=== PATIENT | male | born 1970 | race Caucasian/White ===

== ENCOUNTER 2017-03-08 01:42 | Emergency (ER) | payer MEDICAID ==
[~2017-03-08] VITALS: Ht 170.2 cm; Wt 98.0 kg
[~2017-03-08 01:42] MED LIST: FOLI-49 PO; FURO-109 PO; LACT20SO2 PO; MULTI PO; PANT40TA4 PO; RIFA550T4 PO; SPIR50TA PO; THIA100T56 PO
[2017-03-08 02:01] VITALS: Ht 170.2 cm; Wt 98.0 kg
[2017-03-08] MEDS ORDERED: ONDANSETRON (ODT) 4 MG TAB ODT STA (02:35)
[2017-03-08 02:57] LABS: ADD SCAN DIFF NO
[2017-03-08 03:00] LABS: ABNORMAL IP MESSAGE 1; HEMATOCRIT 32.5 % (42.0-52.0); HEMOGLOBIN 10.2 g/dl (14.0-18.0); MEAN CORPUSCULAR HEMOGLOBIN 27.6 pg (29.0-33.0); MEAN CORPUSCULAR HGB CONC 31.4 g/dl (32.0-37.0); MEAN CORPUSCULAR VOLUME 88.1 fl (82.0-101.0); PLATELET COUNT 60 10^3/UL (140-415); RED BLOOD COUNT 3.69 10^6/ul (4.70-6.10); RED CELL DISTRIBUTION WIDTH 18.6 % (11.5-14.5); WHITE BLOOD COUNT 2.2 10^3/ul (4.8-10.8)
--- NOTE | 2017-03-08 03:13 | RADRPT ---
PROCEDURE: CT Brain without contrast. CLINICAL INDICATION: Headache TECHNIQUE: Axial images from the skull base through the vertex without IV contrast. Multiplanar r eformatted images were made. Images were reviewed on a PACS workstation. The CTDIvol is 45.01 mGy and the DLP is 720.23 mGycm. One or more of the following dose reduction techniques were used: auto mated exposure control, adjustment of the mA and/or kV according to patient size, or use of iterativ e reconstruction technique. COMPARISON: 03/18/2016 FINDINGS: The ventricles and cisterns are normal for age. There is no evidence for territorial infarction or intracranial hemorrhage. No mass or midline shift is seen. No extra-axial fluid collection is seen . The visualized paranasal sinuses and mastoids are clear. Again seen is dense material within the right globe and scleral banding. IMPRESSION: No interval change. No definite acute abnormality. RPTAT: HLBE Physician Davina Date Time Electronically viewed and signed by Physician Davina on 03/08/2017 03:13 LITO/
[2017-03-08 03:16] LABS: ADD UMIC YES; UR BILIRUBIN (Dip) NEGATIVE (NEGATIVE); UR BLOOD (Dip) TRACE (NEGATIVE); UR CLARITY CLEAR (CLEAR); UR COLOR LT. YELLOW (YELLOW); UR GLUCOSE (Dip) NEGATIVE (NEGATIVE); UR KETONES (Dip) NEGATIVE (NEGATIVE); UR LEUKOCYTE ESTERASE (Dip) NEGATIVE (NEGATIVE); UR NITRITE (Dip) NEGATIVE (NEGATIVE); UR TOTAL PROTEIN (Dip) NEGATIVE (NEGATIVE); UR UROBILINOGEN (Dip) 2.0 E.U./dL (0.1-1.0)
--- NOTE | 2017-03-08 03:20 | ERD ---
ER Documentation Chief Complaint Date/Time DATE: 03/08/17 TIME: 03:19 Chief Complaint headache with nausea HPI 46-year-old male presents here in emergency department for complaint of headache and nausea that started today. Patient discussed the headache as throbbing pain, 6/10 scale, accompanied with nausea. Patient denies any vomiting. Patient denies any abdominal pain. Patient denies any diarrhea or constipation. Patient has history of liver cirrhosis, states that whenever his ammonia is elevated, sometimes he feels headache with nausea and is worried about this. Patient denies any head injury. Patient denies any numbness or tingling. Patient denies any blurry vision. ROS All systems reviewed and are negative except as per history of present illness. Medications Home Meds Active Scripts Pantoprazole* (Pantoprazole*) 40 Mg Tablet.dr, 40 MG PO BID@06,18 for 30 Days Prov:MARCO MADDOX 03/24/16 Rifaximin* (Xifaxan*) 550 Mg Tablet, 550 MG PO BID for 30 Days, TAB Prov:MARCO MADDOX 03/24/16 Lactulose* (Lactulose*) 20 Gm/30 Ml Solution, 40 GM PO QID for 30 Days, ML Prov:REGMARCO TORREZ 03/24/16 Thiamine* (Vitamin B-1*) 100 Mg Tablet, 100 MG PO DAILY for 30 Days, TAB Prov:REGMARCO TORREZ 03/24/16 Folic Acid* (Folic Acid*) 1 Mg Tablet, 1 MG PO DAILY for 30 Days, TAB Prov:MARCO MADDOX 03/24/16 Multivitamins* (Theragran*) 1 Tab Tab, 1 TAB PO DAILY for 30 Days, TAB 4 Refills Prov:REGMARCO TORREZ 03/24/16 Furosemide* (Lasix*) 40 Mg Tab, 40 MG PO DAILY for 30 Days, 4 Refills Prov:TSEVIE MORGAN S. 08/16/15 Spironolactone* (Aldactone*) 50 Mg Tab, 100 MG PO DAILY for 30 Days, 4 Refills Prov:STEVIE MORGAN S. 08/16/15 Allergies Allergies: Coded Allergies: No Known Allergy (Unverified , 08/11/15) PMhx/Soc History of Surgery: Yes (R eye surgery, endoscopy) Anesthesia Reaction: No Hx Neurological Disorder: No Hx Respiratory Disorders: No Hx Cardiac Disorders: No Hx Psychiatric Problems: No Hx Miscellaneous Medical Probl: Yes (chronic alcoholic liverdse. w/ portal Htn, varices & splenomegaly,ETOH abuse) Hx Alcohol Use: Yes (3-4 cansday) Hx Substance Use: No Hx Tobacco Use: No Smoking Status: Never smoker FmHx Family History: No coronary disease, No diabetes, No other Physical Exam Vitals Vital Signs Date Time Temp Pulse Resp B/P Pulse Ox O2 Delivery O2 Flow Rate FiO2 03/08/17 02:01 97.9 61 20 137/71 99 Physical Exam GENERAL: The patient is well developed and appropriate for usual state of health, in no apparent distress. CHEST: Clear to auscultation bilaterally. There are no rales, wheezes or rhonchi. HEART: Regular rate and rhythm. No murmurs, clicks, rubs or gallops. No S3 or S4. ABDOMEN: Soft, nontender and nondistended. Good bowel sounds. No rebound or guarding. No gross peritonitis. No gross organomegaly or masses. No Warren sign or McBurney point tenderness. BACK: No midline or flank tenderness. EXTREMITIES: Equal pulses bilaterally. There is no peripheral clubbing, cyanosis or edema. No focal swelling or erythema. Full range of motion. Grossly neurovascularly intact. NEURO: Alert and oriented. Cranial nerves 2-12 intact. Motor strength in all 4 extremities with 5/5 strength. Sensation grossly intact. Normal speech and gait. Negative Romberg sign. Negative pronator drift. SKIN: There is no apparent rash or petechia. The skin is warm and dry. HEMATOLOGIC AND LYMPHATIC: There is no evidence of excessive bruising or lymphedema. No gross cervical, axillary, or inguinal lymphadenopathy. Result Diagram: 03/08/17 0245 03/08/17 0245 Results 24 hrs Laboratory Tests Test 03/08/17 02:45 White Blood Count 2.210^3/ul Red Blood Count 3.6910^6/ul Hemoglobin 10.2g/dl Hematocrit 32.5% Mean Corpuscular Volume 88.1fl Mean Corpuscular Hemoglobin 27.6pg Mean Corpuscular Hemoglobin Concent 31.4g/dl Red Cell Distribution Width 18.6% Platelet Count 6010^3/UL Mean Platelet Volume fl Urine Color LT. YELLOW Urine Clarity CLEAR Urine pH 7.5 Urine Specific [place] 1.015 Urine Ketones NEGATIVE Urine Nitrite NEGATIVE Urine Bilirubin NEGATIVE Urine Urobilinogen 2.0 E.U./dL Urine Leukocyte Esterase NEGATIVE Urine Microscopic RBC 0-2/HPF Urine Microscopic WBC NONE SEEN/HPF Urine Hemoglobin TRACE Urine Glucose NEGATIVE% Urine Total Protein NEGATIVE Sodium Level 141mmol/L Potassium Level 3.6mmol/L Chloride Level 112mmol/L Carbon Dioxide Level 22mmol/L Anion Gap 11 Blood Urea Nitrogen 6mg/dl Creatinine 0.63mg/dl Glucose Level 188mg/dl Calcium Level 8.2mg/dl Total Bilirubin 1.4mg/dl Direct Bilirubin 0.00mg/dl Indirect Bilirubin 1.4mg/dl Aspartate Amino Transf (AST/SGOT) 48IU/L Alanine Aminotransferase (ALT/SGPT) 33IU/L Alkaline Phosphatase 292IU/L Ammonia 202umol/l Total Protein 7.2g/dl Albumin 3.4g/dl Globulin 3.80g/dl Albumin/Globulin Ratio 0.89 Lipase 235U/L Current Medications Medications (Trade) Dose Ordered Sig/Quinn Route PRN Reason Start Time Stop Time Status Last Admin Dose Admin Ondansetron HCl (Zofran Odt) 4 mg ONCE STAT ODT 03/08/17 02:35 03/08/17 02:37 DC 03/08/17 03:02 Patient was given Zofran here in the emergency department. After treatment, patient was able to tolerate po fluids here in the emergency department without any vomiting. There is no signs and symptoms of dehydration. PROCEDURE: CT Brain without contrast. CLINICAL INDICATION: Headache TECHNIQUE: Axial images from the skull base through the vertex without IV contrast. Multiplanar reformatted images were made. Images were reviewed on a PACS workstation. The CTDIvol is 45.01 mGy and the DLP is 720.23 mGycm. One or more of the following dose reduction techniques were used: automated exposure control, adjustment of the mA and/or kV according to patient size, or use of iterative reconstruction technique. COMPARISON: 03/18/2016 FINDINGS: The ventricles and cisterns are normal for age. There is no evidence for territorial infarction or intracranial hemorrhage. No mass or midline shift is seen. No extra-axial fluid collection is seen. The visualized paranasal sinuses and mastoids are clear. Again seen is dense material within the right globe and scleral banding. IMPRESSION: No interval change. No definite acute abnormality. RPTAT: [facility]BE Nancy Enrique Physician Date Time Electronically viewed and signed by Nancy Enrique Physician on 03/08/2017 03 :13 LE/ CC: BARBARA GUSMAN CERTIFIED PHYSICAL THERAPIST ASSISTANT Procedures/MDM Medical Decision Making: Patient symptoms is likely consistent with hyperammonemia, patient has elevated ammonia level, most likely is causing the headache and the nausea. Discussed the case with my attending physician, Dr. Porter, recommends admission to the hospital. Departure Diagnosis: Primary Impression: Hyperammonemia Additional Impression: Liver cirrhosis Hepatic cirrhosis type: alcoholic cirrhosis Ascites presence: without ascites Qualified Code: K70.30 - Alcoholic cirrhosis of liver without ascites Condition: Fair BARBARA GUSMAN CERTIFIED PHYSICAL THERAPIST ASSISTANT Mar 08, 2017 03:20
[2017-03-08 03:24] LABS: ALBUMIN 3.4 g/dl (3.3-4.9); ALBUMIN/GLOBULIN RATIO 0.89; BILIRUBIN,INDIRECT 1.4 mg/dl (0-1.1); BILIRUBIN,TOTAL 1.4 mg/dl (0.2-1.3); CALCIUM 8.2 mg/dl (8.4-10.2); CREATININE 0.63 mg/dl (0.61-1.24); POTASSIUM 3.6 mmol/L (3.5-5.1); TOTAL PROTEIN 7.2 g/dl (6.1-8.1)
[2017-03-08 03:37] LABS: URINE RBCS 0-2 /HPF (0)
[2017-03-08 04:04] LABS: LYMPHOCYTES # 0.8 10^3/ul (0.8-2.9); MONOCYTE # 0.5 10^3/ul (0.3-0.9); NEUTROPHIL # 0.9 10^3/ul (1.6-7.5); PLATELET ESTIMATE PLT APPEAR DECREASED
--- NOTE | 2017-03-08 07:35 | PN ---
Date/Time of Note Date/Time of Note DATE: 03/08/17 TIME: 07:30 Assessment/Plan VTE Prophylaxis VTE Prophylaxis Intervention: other Lines/Catheters IV [facility]from [facility] Saline Lock Assessment/Plan Chief Complaint/Hosp Course Liver Cirrhosis 2/2 EtoH -Patient is alert and oriented in spite of elevation of ammonia, patient has been advised that he needs to be compliant with his lactulose and he states that he understands, patient does not have any acute encephalopathy at this time Headache-improved, secondary to elevated ammonia levels but once again patient does not have any encephalopathy and is stable for discharge Pancytopenia 2/2 liver cirrhosis-no acute issues Discharge planning: Patient has no reasons for admission as he is alert oriented with no encephalopathy he states that he has not been taking his lactulose at home and has been advised that he should be compliant with that medication as well as other medications and states that he understands, patient' s is also bedside and she understands importance of medication compliance and they agree that patient does not need to be admitted and would like to go home, there is no indication for admission at this time and patient will be discharged from the ER Problems: Subjective 24 Hr Interval Summary Neurologic: headache Exam/Review of Systems Vital Signs Vitals Vital Signs Date Time Temp Pulse Resp B/P Pulse Ox O2 Delivery O2 Flow Rate FiO2 03/08/17 06:01 60 13 108/72 99 Room Air 03/08/17 02:01 97.9 Exam Constitutional: alert, oriented Respiratory: clear to auscultation Cardiovascular: regular rate and rhythm Gastrointestinal: soft, No distended Musculoskeletal: nl extremities to inspection Results Result Diagram: 03/08/17 0245 03/08/17 0245 Results 24 hrs Laboratory Tests Test 03/08/17 02:45 White Blood Count 2.2 #L Red Blood Count 3.69 #L Hemoglobin 10.2 L Hematocrit 32.5 #L Mean Corpuscular Volume 88.1 Mean Corpuscular Hemoglobin 27.6 L Mean Corpuscular Hemoglobin Concent 31.4 L Red Cell Distribution Width 18.6 H Platelet Count 60 L Mean Platelet Volume Neutrophils % 40.0 Lymphocytes % 36.0 Monocytes % 22.0 H Eosinophils % 2.0 Neutrophils # 0.9 L Lymphocytes # 0.8 Monocytes # 0.5 Eosinophils # 0.0 Platelet Estimate PLT APPEAR DECREASED Urine Color LT. YELLOW Urine Clarity CLEAR Urine pH 7.5 Urine Specific [place] 1.015 Urine Ketones NEGATIVE Urine Nitrite NEGATIVE Urine Bilirubin NEGATIVE Urine Urobilinogen 2.0 E.U./dL H Urine Leukocyte Esterase NEGATIVE Urine Microscopic RBC 0-2 Urine Microscopic WBC NONE SEEN Urine Hemoglobin TRACE Urine Glucose NEGATIVE Urine Total Protein NEGATIVE Sodium Level 141 Potassium Level 3.6 Chloride Level 112 H Carbon Dioxide Level 22 Anion Gap 11 Blood Urea Nitrogen 6 L Creatinine 0.63 Glucose Level 188 Calcium Level 8.2 L Total Bilirubin 1.4 H Direct Bilirubin 0.00 Indirect Bilirubin 1.4 H Aspartate Amino Transf (AST/SGOT) 48 H Alanine Aminotransferase (ALT/SGPT) 33 Alkaline Phosphatase 292 H Ammonia 202 #H Total Protein 7.2 Albumin 3.4 Globulin 3.80 H Albumin/Globulin Ratio 0.89 Lipase 235 LINETTE ARELLANO Mar 08, 2017 07:35
[2017-03-08 08:31] VITALS: BP 126/79; PULSE 68; RESP 18; TEMP 98
== END 2017-03-08 10:14 | disposition home or self-care (01) ==
LOC: FTE 01:42 → E/R 10:14
DX: E72.20 Disorder of urea cycle metabolism, unspecified (principal); K70.30 Alcoholic cirrhosis of liver without ascites; R11.0 Nausea; I10 Essential (primary) hypertension
CPT/HCPCS: 36415; 70450; 80053; 81001; 82140; 83690; 85025; Z7502; Z7610